=== PATIENT | male | born 2000 | race Asian ===

== ENCOUNTER 2023-11-06 04:09 | Emergency (ER) | payer SELFPAY ==
[~2023-11-06] VITALS: Ht 180.3 cm; Wt 72.6 kg
[2023-11-06 04:21] VITALS: BP_SYST 117; PULSE 74; RESP 18; TEMP 98.3; O2SAT 97
== END 2023-11-06 04:40 ==
LOC: SED 04:09
DX: Z04.1 Encounter for examination and observation following transport accident (principal)
CPT/HCPCS: 99283